=== PATIENT | female | born 1930 | race Caucasian/White ===

== ENCOUNTER 2017-08-02 11:03 | Day surgery (SDC) | payer MEDICARE ==
[2017-08-02] MEDS ORDERED: Phenylephrine 2.5% Ophth Soln 5 ML BOT ONE (11:39)
== END 2017-08-02 12:57 | disposition home or self-care (01) ==
LOC: SDC 11:03
PROVIDERS: ATTEND Ophthalmology
PROC: 085K3ZZ Destruction of Left Lens, Percutaneous Approach (ICD-10-PCS; principal; 2017-08-02)
DX: H26.492 Other secondary cataract, left eye (principal); Z79.899 Other long term (current) drug therapy